=== PATIENT | female | born 1960 | race Caucasian/White ===

== ENCOUNTER → 2016-07-08 | Day surgery (SDC) | payer OTHER ==
[~2016-07-08] VITALS: Ht 154.9 cm; Wt 68.0 kg
[~2016-07-08] MED LIST: *morphine SULFATE 8 MG/ML PERIprocedure ONLY ONE; ACETAMINOPHEN 1000 MG/100 ML VIAL IV ONE; AMIT1TAB79; AMIT25TA20 PO; CHLORHEXIDINE GLUCONATE 2 % 1 PACK (2 CLOTHS) TOPICAL PRN; CHLORHEXIDINE GLUCONATE 4% SOLN 120 ML BTL TOPICAL SCH; CYCL-36 PO; CYCL1TAB29 PO; DEXAMETHASONE SOD PHOS 4 MG/ML VIAL ONE; DO NOT ADM ANY ANTICOAGULANT DRUGS PRN; FAMOTIDINE 20 MG/2 ML VIAL ONE; GENTAMICIN SULFATE 80 MG/2 ML VIAL ONE; INSULIN HUMAN REGULAR 1,000 UNITS/10 ML VIAL SQ PRN; KETOROLAC TROMETHAMINE 30 MG/ML (IVP) VIAL IVP ONE; LACTATED RINGER'S 1000 ML INJ 1,000 ML IV ONE; LACTATED RINGER'S 1000 ML IV PRN; METOPROLOL TARTRATE 25 MG TAB PO PRN; MIDAZOLAM HCL 2 MG/2 ML VIAL ONE; MORPHINE SULFATE 4 MG/ML INJ IV PUSH PRN; MORPHINE SULFATE 4 MG/ML INJ ONE; NEOSTIGMINE 3 MG/3 ML SYR IV ONE; ONDANSETRON HCL 4 MG/2 ML VIAL IV PUSH ONE; POVIDONE IODINE 5% (ANTISEPSIS KIT) 4 APPLICATIONS EACH NARE PRN; PROPOFOL 200 MG/20 ML AMP IV ONE; SERO100T PO; SODIUM CHLOR 0.9% 250 ML INJ 250 ML ONE; SODIUM CHLORID 0.9% 500 ML IV PRN; SODIUM CHLORIDE 0.9% FLUSH 10 ML FLUSH IV FLUSH PRN; SODIUM CHLORIDE 0.9% FLUSH 10 ML FLUSH IV FLUSH SCH; TRAM50TA PO; VANCOMYCIN 1000 MG/NS 250 ML (for <70 kg) IV SCH; VANCOMYCIN HCL 1000 MG VIAL ONE; ceFAZolin 2 GM PREMIX 50 ML IV SCH; ceFAZolin INJ 1,000 MG VIAL IV ONE; fentaNYL CITRATE 250 MCG/5 ML AMP ONE; oxyCODONE/ACETAMINOPHEN 5 MG/325 MG TAB PO PRN
[2016-07-08 09:35] VITALS: BP 142/78; PULSE 68; RESP 22; TEMP 98.2; O2SAT 97
--- NOTE | 2016-07-08 12:55 | PD.OP ---
cc: Nathaniel Queen Jr., MD Operative Report Date of Surgery: July 08, 2016 Preoperative Diagnosis: Left ankle bimalleolar fracture Postoperative Diagnosis: Same Procedure: Open reduction internal fixation left ankle Anesthesia: Gen. Surgeon: Nathaniel Queen Cloud Consultant(s): NIKKI Garcia The surgical procedure was assisted by my Advanced Registered Nurse Practitioner. My GUEST RELATIONS EXECUTIVE presence was necessary throughout this case for the manipulation and positioning of the surgical extremity. My GUEST RELATIONS EXECUTIVE was assisting me throughout the duration of this procedure. The skill set of an Advance Registered Nurse Practitioner was medically necessary to complete this procedure. During the surgical case, the surgical technician was working at the back table and the Advance Registered Nurse Practitioner was directly assisting me. Resident Surgeon: None Operation and Findings: Informed consent obtained, operative site was marked. The foot and ankle were seen and evaluated this morning. Soft tissue swelling had significantly improved and appeared to be ready for surgery. He was brought to the operating room and placed on the operating room table. He was given intravenous sedation, general endotracheal anesthesia. He received IV antibiotics and was placed in the lateral decubitus position. Foot and leg were prepped with alcohol, followed by Hibiclens, draped in usual sterile fashion. A time out procedure was preformed. The procedure began with a five inch incision over the lateral aspect fibula. A full thickness flap was carefully elevated. The fracture was identified , periosteum was elevated atthe fracture site. Attention was now turned to expose the distal end of the fibula and as much proximal as necessary to allow reduction and plate position. Attention was turned to the syndesmosis and under direct visualization the syndesmotic area was cleaned of any debris and irrigated. The fibula fracture was rather comminuted and her bone quality was also poor. A lateral fibular plate was used to bridge the fracture. After securing the plate distally with locking screws, a push-pull technique was used to bring the fibula out to appropriate length. Reduction was confirmed under fluoroscopy. An anterior medial incision was made at the level of the medial malleolus. A full-thickness flap was carefully elevated. There was a small avulsion of the anterior third of the medial malleolus. That fragment was slightly move out delayed to allow direct visualization of the medial clear space which was thoroughly irrigated and cleared of any debris. The medial malleolus was reduced and reduction was provisionally maintained with a K wire. The fragment was fixed securely with 3.0 cannulated lag screws. Using fluoroscopy, the syndesmosis was stressed in the mortise view with the cotton test and external rotation stress test. The syndesmosis was found to be unstable. With the ankle held in slight dorsiflexion, the syndesmosis was reduced with a large bone clamp and fixed with 1x4.0 mm screw traversing through 4 cortices. Multiplanar fluoroscopy confirmed well-aligned fracture. Final fluoroscopy was used to confirm a well-aligned fracture with well-placed hardware. Incision was thoroughly irrigated. Tourniquet was released. Hemostasis was confirmed. Fascia layer was closed 0 Vicryl, the skin and subcutaneous tissue closed with 3 -0 nylon, in vertical mattress fashion. Sterile dressings were applied the patient was placed into a well molded padded splint. The patient was transferred to the Recovery Room in stable condition. POSTP-OP PLAN OF ACTIVITY Antibiotics: Ancef Weight bearing status: NWB Dressing:Do not remove splints Dispo: expected discharge once pain is controlled from [facility] Nathaniel Queen Jr., MD July 08, 2016 12:55
[2016-07-08 16:36] VITALS: BP 154/81; PULSE 71; RESP 16; TEMP 98.6; O2SAT 95
--- NOTE | 2016-07-08 16:36 | EKG ---
Date Performed: 07/08/2016 Time Performed: 10:13:12 PTAGE: 55 years EKG: Sinus rhythm NONDIAGNOSTIC INFERIOR Q WAVES BORDERLINE ECG PREVIOUS TRACING : 04/27/2013 06.59 No significant change from previous tracing noted. DOCTOR: Adonay Vega Interpretating Date/Time 07/08/2016 16:35:08
--- NOTE | 2016-07-08 16:48 | RADRPT ---
EXAM DATE/TIME: 07/08/2016 13:48 [facility] COMPARISON: No previous studies available for comparison. INDICATIONS : Left ankle fracture repair. OR. MEDICAL HISTORY : None. SURGICAL HISTORY : None. ENCOUNTER: Initial ACUITY: 1 day PAIN SCORE: Non-responsive. LOCATION: Left ankle FINDINGS: There has been lateral plate and screw fixation of the distal fibula partially threaded cortical scre w traversing the medial malleolus and along cortical screw traversing the distal tibiofibular joint a nd the hardware is well-positioned and intact with normal alignment noted. CONCLUSION: Satisfactory operative appearance. Victor Manuel Chavez MD on July 08, 2016 at 16:44 Board Certified Radiologist. This report was verified electronically.
== END | disposition home or self-care (01) ==
LOC: HSDC 09:28
PROVIDERS: ATTEND Orthopaedic Surgery
DX: S82.842A Displaced bimalleolar fracture of left lower leg, initial encounter for closed fracture (principal); E78.5 Hyperlipidemia, unspecified; M47.817 Spondylosis without myelopathy or radiculopathy, lumbosacral region; M48.06 Spinal stenosis, lumbar region; F17.210 Nicotine dependence, cigarettes, uncomplicated; V19.3XXA Pedal cyclist (driver) (passenger) injured in unspecified nontraffic accident, initial encounter; Y93.55 Activity, bike riding; Z01.818 Encounter for other preprocedural examination; Z01.810 Encounter for preprocedural cardiovascular examination
CPT/HCPCS: 01480; 27814; 73600; 76000; 86850; 86900; 86901; 93005; C1713; J0131; J0690; J1100; J1580; J1885; J2250; J2270; J2405; J2710; J3010; J3370; J7050; J7120